=== PATIENT | male | born 1940 | race Caucasian/White ===

== ENCOUNTER → 2017-01-31 | Day surgery (SDC) | payer MEDICARE, BC ==
[~2017-01-31] VITALS: Ht 177.8 cm; Wt 85.2 kg
[~2017-01-31] MED LIST: CORTISPORIN OTI10 ML TOP; HYDRODIURIL25 MG PO; LIPITOR20 M1 PO; NORCO 5-325 TA1 EACH PO; TOPROL XL25 MG PO; VOLTAREN75 MG PO
--- NOTE | ~2017-01-31 | OR ---
PATIENT'S NAME: LIZZ PEGUERO [facility] AGE: 76 Y [address] ROOM: [place] [id number] LOCATION: [facility] – [place] ADMIT DATE: 01/31/2017 OR/Procedure Report DISCHARGE DATE: FAMILY PHYSICIAN: Andriy Yoo PA-C ATTENDING PHYSICIAN: Vicente Hurd SURGEON: Vicente Hurd DPM LICENSING COORDINATOR: DATE OF PROCEDURE: 01/31/2017 PREOPERATIVE DIAGNOSES: 1. Hallux rigidus right foot. 2. Pain in joint right foot. 3. Ingrown toenail right hallux. POSTOPERATIVE DIAGNOSES: 1. Hallux rigidus right foot. 2. Pain in joint right foot. 3. Ingrown toenail right hallux. PROCEDURES PERFORMED: 1. Cheilectomy with insertion of Cartiva synthetic cartilage implant for his metatarsophalangeal joint right foot. 2. Partial phenol matrixectomy medial border right hallux. OPERATIVE SUMMARY: On 01/31/2017, this 76-year-old male was transported to the operating room and placed on the operating room table in the supine position after local anesthesia had been achieved under sedation in the preoperative holding area. Once in the operating room and on the table, the right foot was prepped and draped in the usual sterile fashion. Next, a pneumatic ankle tourniquet was applied to a well-padded site just proximal to malleoli and roughly inflated to 250 mmHg following the exsanguination by Adam Esmarch bandage. The right lower extremity was delivered back to the operating room table. Sterile draping was completed and the following procedure was performed. Cheilectomy with insertion of Cartiva synthetic cartilage implant (size 10) right foot. At this time, attention was directed towards the patient's right foot, where on preoperative evaluation, he was noted to have limited first metatarsophalangeal joint range of motion that was painful. Preoperative x- ray evaluation revealed that there was arthritic changes to both proximal phalanx and all sides of the metatarsal head indicating degenerative change. So, at this time, an approximately 5 cm dorsal linear skin incision was created over the dorsal medial aspect of the first metatarsophalangeal joint just medial to the extensor hallucis longus tendon. This incision was deepened down through subcutaneous tissues. All coursing venous tributaries PATIENT'S NAME: LIZZ PEGUERO [facility] AGE: 76 Y [address] ROOM: [place] [id number] LOCATION: [facility] [place] ADMIT DATE: 01/31/2017 OR/Procedure Report DISCHARGE DATE: FAMILY PHYSICIAN: Andriy Yoo PA-C ATTENDING PHYSICIAN: Vicente Hurd were identified, isolated, clamped, cut, and electrocoagulated as encountered. All vital neurovascular structures were gently retracted in a medial and lateral fashion. There was some difficulty initially with some venous oozing so the Esmarch bandage was used to help with exsanguination at the ankle. Next, a linear capsule and periosteal incision was created at the confines of the original skin incision. Next, the capsular and periosteal structures were dissected in a medial and lateral fashion bringing into view the hypertrophic dorsal, medial, and lateral aspects to both sides of the joint that was noted on x-ray with the phalanx and the metatarsal head. Once this had been dissected free, a rongeur and sagittal saw were used to remove the hypertrophic bone from the dorsal, medial, and lateral aspects of the metatarsal head and then the base of the phalanx to the hallux. Once this had been achieved, the articular surfaces were examined and there was noted to be loss of the central and somewhat dorsal medial aspect of the articular cartilage with a deficit of about 8 to 9 mm in size. There was also despite removal of bone limited dorsiflexion motion, so a McGlamry elevator was used at this time to free plantar adhesions to the sesamoids. Once this was achieved, there was noted to be much better range of motion. It was determined with the articular cartilage loss and to help preserve joint motion long-term, that a Cartiva synthetic cartilage implant would be placed. Next, utilizing the Cartiva technique, a guidewire was placed through the central aspect of the metatarsal head and retrograded up along the angle of the metatarsal shaft. Then, the abrader was used to make a hole for placement of the implant. It was determined with the size of the joint that a size 10 would be the best fit. Once this had been determined, the implant was then placed into the impactor and placed into the previously made hole to the metatarsals distally. Once in position, there was noted to be good replacement of the articular cartilage deficit as well as good maintenance of the first metatarsophalangeal joint dorsiflexion motion with no impingement as there was just the distal 1 to 2 mm of the implant protruding. Being satisfied with the correction which was confirmed utilizing intraoperative C- arm, attention was then directed towards closure. The wound was flushed with copious amounts of sterile saline. The capsular tissues were reapproximated utilizing 3-0 Vicryl in a running suture. 4-0 Vicryl retention stitch was placed to the subcutaneous tissues. The skin edges were reapproximated using 5-0 Vicryl in a running subcuticular fashion. Being satisfied with this, attention was then directed towards bandaging. The incision was instilled with 1 mL of sterile dexamethasone phosphate. Next, the incision was reinforced utilizing 0.5 inch Steri-Strips and tincture of benzoin. Next, a dressing consisting of Adaptic, sterile 4x4s, Kerlix, Broderick, and Coban were applied in a mildly compressive and corrective fashion to the patient's right foot. Prior to dropping the pneumatic ankle tourniquet, the following procedure was then performed. PATIENT'S NAME: LIZZ PEGUERO [facility] AGE: 76 Y [address] ROOM: [place] [id number] LOCATION: [facility] [place] ADMIT DATE: 01/31/2017 OR/Procedure Report DISCHARGE DATE: FAMILY PHYSICIAN: Andriy Yoo PA-C ATTENDING PHYSICIAN: Vicente Hurd PARTIAL PHENOL MATRIXECTOMY MEDIAL BORDER OF RIGHT HALLUX. At this time, attention was directed towards the right hallux which had not been wrapped with the previous bandage placement and noted to have incurvation of the medial border. Next, utilizing a hemostat, this medial border approximately the medial 6 to 7 mm of the nail was freed back to the level of the nail matrix. Then, utilizing a nail splitter, this was split to the level of the matrix, rolled free from surrounding soft tissue attachments, and extirpated in toto from the surgical site. The area was inspected and there was no nail spicule noted proximally. Once the nail had been removed, phenol was applied for 3 applications with using a cotton tip applicator for 30 seconds each and then neutralized utilizing alcohol. Next, the compressive dressing with triple antibiotic ointment and gauze and Coban was placed to the hallux in a way to allow him access to change the dressing starting tomorrow. The previously applied pneumatic ankle tourniquet and Esmarch were released at this time and instantaneous capillary refill time was noted to digits 1 through 5 of the patient's right foot. The patient tolerated both procedures well and left the operating room in good condition with vital signs stable. He was returned to the holding area for further monitoring prior to discharge. ADELA VALENZUELA/modl /[id number] d: t: 02/01/17 0030, OPERATIVE SUMMARY
== END ==
LOC: GPOC 01-29 15:00 → GSDC 07:00 → GPOC 15:00
PROC: 0SRM0JZ Replacement of Right Metatarsal-Phalangeal Joint with Synthetic Substitute, Open Approach (ICD-10-PCS; principal; 2017-01-31)
PROC: 0HTRXZZ Resection of Toe Nail, External Approach (ICD-10-PCS; 2017-01-31)
DX: M20.21 Hallux rigidus, right foot (principal); L60.0 Ingrowing nail; I10 Essential (primary) hypertension; Z98.890 Other specified postprocedural states; Z87.891 Personal history of nicotine dependence; Z79.899 Other long term (current) drug therapy
CPT/HCPCS: J0690; J1100; J2001; J2250; J7030